=== PATIENT | female | born 1960 | race Hispanic/Latino ===

== ENCOUNTER 2021-09-22 07:22 | Emergency (ER) | payer OTHER ==
[2021-09-22] MEDS ORDERED: Boostrix 0.5 ML (Tdap) VIAL ONE (07:38)
[2021-09-22] MEDS ORDERED: Xylocaine 1% w/ Epi 1:100K 10 ML VIAL ONE (08:06)
== END 2021-09-22 09:22 | disposition home or self-care (01) ==
LOC: ERS 07:22
DX: S01.112A Laceration without foreign body of left eyelid and periocular area, initial encounter (principal); V89.2XXA Person injured in unspecified motor-vehicle accident, traffic, initial encounter
CPT/HCPCS: 12015; 70450; 70486; 72125; 90471; 90715; G0390

== ENCOUNTER 2021-09-30 16:22 | Emergency (ER) | payer SELFPAY | END 2021-09-30 17:17 | disposition home or self-care (01) | LOC: ERS 16:22 | DX: S01.81XD Laceration without foreign body of other part of head, subsequent encounter (principal); X58.XXXD Exposure to other specified factors, subsequent encounter ==